=== PATIENT | male | born 1950 | race Caucasian/White ===

== ENCOUNTER 2016-03-19 13:12 | Inpatient (IN) | payer OTHER, BC ==
[~2016-03-19] VITALS: Ht 180.3 cm; Wt 87.0 kg
[2016-03-19] MEDS ORDERED: PREDNISONE10 MG PO (13:35)
[2016-03-19] MEDS ORDERED: LEVOFLOXACIN500 MG PO (13:35)
[2016-03-19] MEDS ORDERED: PROAIR HFA8.5 GM IH (13:36)
[2016-03-19] MEDS ORDERED: BREO ELLIPTA I1 EACH IH (13:37)
[2016-03-19] MEDS ORDERED: PHENERGAN-CODE120 ML PO (13:37)
[2016-03-19 14:01] LABS: EOSINOPHIL (%) 0.1 % (0-5); HEMATOCRIT 41.1 % (38.0-50.0); IMMATURE GRANULOCYTE (%) 0.2 % (0.0-0.7); IMMATURE GRANULOCYTE COUNT 0.3 K/uL; LYMPHOCYTE COUNT 1.6 K/uL (1.0-2.8); MCH 34.1 PG (29.0-34.0); MCV 97.4 FL (86-99); MEAN PLAT.VOLUME 9.6 uM^3 (9.0-12.4); MONOCYTE (%) 7.9 % (3-12); NEUTROPHIL COUNT 10.1 K/uL (1.8-6.4); PLATELET COUNT 193 K/uL (156-360); RBC DIS.WIDTH-CV 13.3 % (11.8-14.6); RBC DIS.WIDTH-SD 45.9 % (39-53); RED BLOOD COUNT 4.22 M/uL (4.00-5.50); WHITE BLOOD COUNT 12.8 K/uL (4.1-10.2)
[2016-03-19 14:11] LABS: CHLORIDE 111 mEq/L (99-109); POTASSIUM 4.2 mEq/L (3.7-5.4); SODIUM 140 mEq/L (136-147)
[2016-03-19 14:13] LABS: D-DIMER ELISA 1.41 mg/L FEU (< 0.57); GLUCOSE 111 mg/dL (70-99); INTER. NORMALIZED RATIO 1.2; PROTHROMBIN TIME 12.5 (9.2-11.2); PTT 32.6 (25-32)
[2016-03-19 14:15] LABS: ANION GAP 11 MEQ/L (2-14)
[2016-03-19 14:17] LABS: GFR ESTIMATE (CALCULATED) > 59 mL/min/
[2016-03-19 14:18] LABS: UREA NITROGEN (BUN) 17 mg/dL (9-23)
[2016-03-19 14:22] LABS: TROP-I INTERPRETATION NEGATIVE; TROPONIN-I 0.02 ng/mL (0.0-0.30)
[2016-03-19 17:20] VITALS: BP 140/82
[2016-03-19 18:33] LABS: INFLUENZA A VIRAL ANTIGEN NEGATIVE; INFLUENZA B VIRAL ANTIGEN NEGATIVE
[2016-03-19 19:31] VITALS: BP 118/67
[2016-03-19 20:05] LABS: TROP-I INTERPRETATION NEGATIVE; TROPONIN-I 0.02 ng/mL (0.0-0.30)
[2016-03-19 23:05] VITALS: BP 119/56
[2016-03-20 01:50] LABS: HEMATOCRIT 38.5 % (38.0-50.0); MCH 34.8 PG (29.0-34.0); MCHC 35.1 G/DL (30.0-36.0); MCV 99.2 FL (86-99); MEAN PLAT.VOLUME 9.5 uM^3 (9.0-12.4); PLATELET COUNT 159 K/uL (156-360); RBC DIS.WIDTH-CV 13.5 % (11.8-14.6); RBC DIS.WIDTH-SD 47.3 % (39-53); RED BLOOD COUNT 3.88 M/uL (4.00-5.50); WHITE BLOOD COUNT 10.7 K/uL (4.1-10.2)
[2016-03-20 02:05] LABS: CHLORIDE 109 mEq/L (99-109); POTASSIUM 3.7 mEq/L (3.7-5.4); SODIUM 143 mEq/L (136-147)
[2016-03-20 02:06] LABS: GLUCOSE 105 mg/dL (70-99)
[2016-03-20 02:08] LABS: ANION GAP 10 MEQ/L (2-14)
[2016-03-20 02:10] LABS: GFR ESTIMATE (CALCULATED) > 59 mL/min/; TROP-I INTERPRETATION NEGATIVE; TROPONIN-I 0.02 ng/mL (0.0-0.30)
[2016-03-20 02:11] LABS: UREA NITROGEN (BUN) 19 mg/dL (9-23)
[2016-03-20 02:47] VITALS: BP 108/69
[2016-03-20 07:30] VITALS: BP 102/64
[2016-03-20 11:00] VITALS: BP 123/74
== END 2016-03-20 14:05 | disposition short-term general hospital (02) | DRG 871 ==
LOC: EME 13:12 → EDOF 16:00 → 4EAST 17:16
PROVIDERS: Emergency Medicine; Hospitalist
DX: A41.9 Sepsis, unspecified organism (principal); J18.9 Pneumonia, unspecified organism; I50.9 Heart failure, unspecified; E87.2 Acidosis; Z87.891 Personal history of nicotine dependence; I34.0 Nonrheumatic mitral (valve) insufficiency; I34.1 Nonrheumatic mitral (valve) prolapse; J96.01 Acute respiratory failure with hypoxia
CPT/HCPCS: 71010; 71275; 80048; 83880; 84484; 85025; 85027; 85379; 85610; 85730; 86609 90; 87040; 87449; 87502; 93005; 93306; 94640; 94799; 99281; 99285; J0696; J1644; J1940; J2543; J3370; J7050; J7512

== ENCOUNTER 2016-08-04 16:48 | Observation (INO) | payer BC, OTHER ==
[~2016-08-04] VITALS: Ht 180.3 cm; Wt 86.9 kg
[~2016-08-04 16:48] MED LIST: BREO ELLIPTA I1 EACH IH; LEVOFLOXACIN500 MG PO; PHENERGAN-CODE120 ML PO; PREDNISONE10 MG PO; PROAIR HFA8.5 GM IH
[2016-08-04 18:16] LABS: HEMATOCRIT 44.2 % (38.0-50.0); MCH 34.1 PG (29.0-34.0); MCHC 35.1 G/DL (30.0-36.0); MCV 97.4 FL (86-99); MEAN PLAT.VOLUME 9.9 uM^3 (9.0-12.4); PLATELET COUNT 104 K/uL (156-360); RBC DIS.WIDTH-CV 12.9 % (11.8-14.6); RBC DIS.WIDTH-SD 46.1 % (39-53); RED BLOOD COUNT 4.54 M/uL (4.00-5.50); WHITE BLOOD COUNT 7.6 K/uL (4.1-10.2)
[2016-08-04 18:34] LABS: CHLORIDE 103 mEq/L (99-109); POTASSIUM 4.4 mEq/L (3.7-5.4); SODIUM 136 mEq/L (136-147)
[2016-08-04 18:35] LABS: GLUCOSE 105 mg/dL (70-99)
[2016-08-04 18:37] LABS: ANION GAP 10 MEQ/L (2-14)
[2016-08-04 18:39] LABS: GFR ESTIMATE (CALCULATED) > 59 mL/min/
[2016-08-04 18:40] LABS: UREA NITROGEN (BUN) 15 mg/dL (9-23)
[2016-08-04 18:41] LABS: TROP-I INTERPRETATION NEGATIVE; TROPONIN-I < 0.01 ng/mL (0.0-0.30)
[2016-08-04 18:55] LABS: D-DIMER ELISA 2.35 mg/L FEU (< 0.57)
[2016-08-04] MEDS ORDERED: LO-DOSE ASPIRIN81 M2 PO (20:57)
[2016-08-05 01:21] VITALS: BP 170/85
[2016-08-05 06:31] LABS: TROP-I INTERPRETATION NEGATIVE; TROPONIN-I 0.02 ng/mL (0.0-0.30)
[2016-08-05 09:45] VITALS: BP 130/70
[2016-08-05 12:28] LABS: TROP-I INTERPRETATION NEGATIVE; TROPONIN-I < 0.01 ng/mL (0.0-0.30)
[2016-08-05] MEDS ORDERED: NITROSTAT0.4 MG SL (12:47)
== END 2016-08-05 14:46 | disposition home or self-care (01) ==
LOC: EME 16:48 → EDOF 23:23 → 5WEST 23:23
PROVIDERS: Hospitalist; Physician Assistant
DX: R07.9 Chest pain, unspecified (principal); R06.02 Shortness of breath; R42 Dizziness and giddiness; Z95.2 Presence of prosthetic heart valve; K74.69 Other cirrhosis of liver; K76.6 Portal hypertension; Z87.891 Personal history of nicotine dependence; Z79.82 Long term (current) use of aspirin; Z82.49 Family history of ischemic heart disease and other diseases of the circulatory system
CPT/HCPCS: 71020; 71275; 80048; 84484; 85027; 85379; 93005; 99281; 99285; G0378; J1650; J7040